=== PATIENT | male | born 1970 | race Caucasian/White ===

== ENCOUNTER 2017-01-17 06:33 | Day surgery (SDC) | payer OTHER ==
[~2017-01-17] VITALS: Ht 170.2 cm; Wt 74.8 kg
[~2017-01-17 06:33] MED LIST: BACLOFEN10 MG GT; BACLOFEN10 MG PO; BAY GT; CAT0.1 GT; CLINDAMYCI300 MG/50 GT; CLINDAMYCIN HC300 MG PO; CLONIDINE HCL0.1 MG GT; COL100UDC GT; DIOCTO LIQ50 MG/5 ML PO; DOCU GT; DOXYCYCLINE MO100 MG GT; FAMOTIDINE20 MG PO; FERG PO; FIBERSOURCE HN250 ML GT; FLORINEF ACETA0.1 MG GT; FLORINEF ACETA0.1 MG PO; FLUDROCORTISON0.1 MG GT; FLUDROCORTISON0.1 MG PO; GOOD SENSE ASPI81 M3 GT; GUAIFENESI100 MG/52 GT; IPRATROPIUM BROM3 M2 HHN; KCL20L GT; KEPPRA100 MG/M1 PO; KEPPRA1000 M1 GT; KEPPRA500 MG; KEPPRA500 MG GT; LAC GT; LAC PO; LAC30L PO; LEVAQUIN500 MG GT; LEVAQUIN750 MG GT; LIO10 GT; LIPI10 GT; LORAZEPAM0.5 MG GT; NORCO1 TA2 GT; POTASSIUM CHLO10 MEQ; PROVENTIL0.09 MG/A1 INH; RANITIDINE HCL150 M1 PO; RANITIDINE150 M1 GT; SEN GT; SENNA LAXATIVE8.6 MG PO; SENNA8.6 M2 GT; SENNA8.6 M2 PO; STOOL SOFTENER100 MG GT; TRAZODONE HYDR100 MG PO; TRAZODONE100 MG PO; VALIUM2 MG GT; VALIUM5 MG PO; Z GT; ZES10 GT; ZES20 GT; ZOS3PM IV
[2017-01-17 07:12] VITALS: BP 125/78
[2017-01-17 13:19] VITALS: BP 141/91
== END 2017-01-17 12:05 | disposition home or self-care (01) ==
LOC: GI 06:33 → OR 07:30 → GI 12:05
PROVIDERS: Internal Medicine Gastroenterology
PROC: 0W3F0ZZ Control Bleeding in Abdominal Wall, Open Approach (ICD-10-PCS; 2017-01-17)
PROC: 0D20XUZ Change Feeding Device in Upper Intestinal Tract, External Approach (ICD-10-PCS; principal; 2017-01-17 07:30)
PROC: 0HB7XZZ Excision of Abdomen Skin, External Approach (ICD-10-PCS; 2017-01-17 07:30)
DX: K94.23 Gastrostomy malfunction (principal); L92.8 Other granulomatous disorders of the skin and subcutaneous tissue; K94.21 Gastrostomy hemorrhage; Y83.3 Surgical operation with formation of external stoma as the cause of abnormal reaction of the patient, or of later complication, without mention of misadventure at the time of the procedure; Y73.2 Prosthetic and other implants, materials and accessory gastroenterology and urology devices associated with adverse incidents; Y92.009 Unspecified place in unspecified non-institutional (private) residence as the place of occurrence of the external cause
CPT/HCPCS: 43760; J1200; J1610; J2001; J2250; J2310; J3010; J3490; Q0092; Q9963

== ENCOUNTER 2017-09-17 04:46 | Emergency (ER) | payer OTHER ==
[~2017-09-17] VITALS: Ht 170.2 cm; Wt 68.0 kg
[2017-09-17 04:53] VITALS: Ht 170.2 cm; Wt 68.0 kg
[2017-09-17 06:56] VITALS: BP 103/64
== END 2017-09-17 07:05 | disposition home or self-care (01) ==
LOC: ED 04:46
DX: Z76.0 Encounter for issue of repeat prescription (principal); F51.09 Other insomnia not due to a substance or known physiological condition; I10 Essential (primary) hypertension

== ENCOUNTER 2017-10-07 16:14 | Inpatient (IN) | payer OTHER ==
[~2017-10-07] VITALS: Ht 170.2 cm; Wt 87.3 kg
[2017-10-07 17:32] LABS: BASOPHIL % 0.1 % (0-2); RED CELL DISTRIBUTION WIDTH 14.1 % (11.5-14.5)
[2017-10-07 17:33] LABS: PLATELET COUNT 100 x10^3mcL (130-400)
[2017-10-07 17:51] LABS: CARBON DIOXIDE 29.4 mmol/L (21-32); CREATININE SERUM 2.3 mg/dL (0.7-1.3); POTASSIUM SERUM 4.5 mmol/L (3.5-5.1)
[2017-10-07 18:02] LABS: BILIRUBIN TOTAL 0.66 mg/dL (0.20-1.00); TOTAL PROTEIN, SERUM 7.4 g/dL (6.4-8.2)
[2017-10-07 18:03] LABS: ALBUMIN 3.1 g/dL (3.4-5.0)
[2017-10-07] MEDS ORDERED: LACTULOSE10 GM/152 PO (19:12)
[2017-10-07] MEDS ORDERED: FERROUS SULFAT325 M2 GT (19:14)
[2017-10-07] MEDS ORDERED: KEPPRA100 MG/M1 GT (19:17)
[2017-10-07] MEDS ORDERED: AMBIEN5 MG PO (19:31)
[2017-10-07] MEDS ORDERED: NATURE'S BLEND1 TA4 (19:31)
[2017-10-07] MEDS ORDERED: CARVEDILOL3.125 M1 (19:39)
[2017-10-07] MEDS ORDERED: CARVEDILOL6.25 M1 PO (19:40)
[2017-10-07] MEDS ORDERED: IBUPROFEN400 MG PO (19:40)
[2017-10-07] MEDS ORDERED: ESCITALOPRAM OX10 MG PO (19:41)
[2017-10-07] MEDS ORDERED: LISINOPRIL10 MG PO (19:41)
[2017-10-07] MEDS ORDERED: CYCLOBENZAPRINE5 MG PO (19:41)
[2017-10-07] MEDS ORDERED: SENNA LAX8.6 MG (19:42)
[2017-10-07] MEDS ORDERED: LAXATIVE5 M1 (19:42)
[2017-10-07] MEDS ORDERED: FAMOTIDINE40 MG PO (19:42)
[2017-10-07 19:45] LABS: microscopic required? YES; urine erythrocyte NEGATIVE (NEGATIVE)
[2017-10-07 20:38] VITALS: BP 81/56
[2017-10-07 21:20] LABS: AMPHETAMINE QUAL UR NONE DETECTED (NEG <=1000)
[2017-10-07 21:37] LABS: T3 TOTAL 0.57 ng/mL
[2017-10-07 21:38] LABS: MAGNESIUM 2.6 mg/dL (1.8-2.4)
[2017-10-07 21:39] LABS: CHOLESTEROL/HDL RATIO 1.8
[2017-10-07 21:44] LABS: FREE T4 0.8 ng/dL (0.76-1.46)
[2017-10-07 21:45] LABS: FREE THYROXINE INDEX 1.5 ug/dL (1.4-4.5); T4(THYROXINE) 4.3 ug/dL (4.7-13.3)
[2017-10-07 23:34] VITALS: BP 81/56
[2017-10-08] VITALS (19 sets, daily range): BP systolic 79–137; BP diastolic 37–81
[2017-10-08 04:48] LABS: RED CELL DISTRIBUTION WIDTH 13.7 % (11.5-14.5)
[2017-10-08 04:59] LABS: PLATELET COUNT 84 x10^3mcL (130-400)
[2017-10-08 05:01] LABS: CALCIUM 7.3 mg/dL (8.5-10.1); CARBON DIOXIDE 29.2 mmol/L (21-32); CREATININE SERUM 1.5 mg/dL (0.7-1.3); MAGNESIUM 2.1 mg/dL (1.8-2.4); PHOSPHOROUS 2.4 mg/dL (2.5-4.9); POTASSIUM SERUM 5.2 mmol/L (3.5-5.1)
[2017-10-08 05:49] LABS: BAND NEUTROPHIL 47 % (0-10); BASOPHIL 0 % (0-2); MONOCYTE 4 % (0-7); PLATELET MORPHOLOGY LARGE PLATELET SEEN; SEGMENTED NEUTROPHILS 33 % (37-75); rbc morphology (normal/abnorm) ABNORMAL (NORMAL); tear drop cell (dacryocyte) 1+
[2017-10-09] VITALS (18 sets, daily range): BP systolic 96–147; BP diastolic 49–87
[2017-10-09 05:51] LABS: CALCIUM 7.2 mg/dL (8.5-10.1); CHLORIDE SERUM 111 mmol/L (98-107); CREATININE SERUM 1.1 mg/dL (0.7-1.3); GFR1 > 60 mL/min; GLUCOSE SERUM 87 mg/dL (74-106); MAGNESIUM 2.1 mg/dL (1.8-2.4); PHOSPHOROUS 1.7 mg/dL (2.5-4.9); SODIUM SERUM 150 mmol/L (136-145)
[2017-10-09 05:52] LABS: POTASSIUM SERUM 2.8 mmol/L (3.5-5.1)
[2017-10-09 05:55] LABS: BASOPHIL % 0.3 % (0-2)
[2017-10-09 05:56] LABS: PLATELET COUNT 74 x10^3mcL (130-400)
[2017-10-10] VITALS (12 sets, daily range): BP systolic 121–164; BP diastolic 66–98
[2017-10-10 05:29] LABS: CALCIUM 7.3 mg/dL (8.5-10.1); CHLORIDE SERUM 107 mmol/L (98-107); GFR1 > 60 mL/min; GLUCOSE SERUM 139 mg/dL (74-106); MAGNESIUM 1.7 mg/dL (1.8-2.4)
[2017-10-10 05:40] LABS: BASOPHIL % 0.1 % (0-2); PLATELET COUNT 69 x10^3mcL (130-400); RED CELL DISTRIBUTION WIDTH 13.4 % (11.5-14.5)
[2017-10-10 05:55] LABS: SODIUM SERUM 145 mmol/L (136-145)
[2017-10-10 13:41] LABS: CALCIUM 7.4 mg/dL (8.5-10.1); CARBON DIOXIDE 32.9 mmol/L (21-32); CHLORIDE SERUM 108 mmol/L (98-107); CREATININE SERUM 0.9 mg/dL (0.7-1.3); GFR1 > 60 mL/min; GLUCOSE SERUM 116 mg/dL (74-106); SODIUM SERUM 145 mmol/L (136-145)
[2017-10-10 13:44] LABS: POTASSIUM SERUM 2.9 mmol/L (3.5-5.1)
[2017-10-11 03:00] VITALS: BP 127/78
[2017-10-11 05:33] LABS: BASOPHIL % 0.1 % (0-2); RED CELL DISTRIBUTION WIDTH 14.3 % (11.5-14.5)
[2017-10-11 05:38] LABS: PLATELET COUNT 81 x10^3mcL (130-400)
[2017-10-11 05:52] LABS: CALCIUM 7.6 mg/dL (8.5-10.1); CARBON DIOXIDE 32.2 mmol/L (21-32); CHLORIDE SERUM 109 mmol/L (98-107); CREATININE SERUM 0.7 mg/dL (0.7-1.3); GFR1 > 60 mL/min; GLUCOSE SERUM 120 mg/dL (74-106); MAGNESIUM 1.9 mg/dL (1.8-2.4); PHOSPHOROUS 2.7 mg/dL (2.5-4.9); POTASSIUM SERUM 3.4 mmol/L (3.5-5.1); SODIUM SERUM 146 mmol/L (136-145)
[2017-10-11 07:15] VITALS: BP 148/100
[2017-10-11 11:13] VITALS: BP 96/58
[2017-10-11 15:11] VITALS: BP 120/76
[2017-10-11 16:41] VITALS: BP 111/75
[2017-10-11 20:59] VITALS: BP 138/85
[2017-10-12 06:06] VITALS: BP 142/98
[2017-10-12 09:36] VITALS: BP 137/87
[2017-10-12 13:16] VITALS: BP 90/52
[2017-10-12 16:49] VITALS: BP 126/76
[2017-10-12 17:50] LABS: BASOPHIL % 0.1 % (0-2); PLATELET COUNT 95 x10^3mcL (130-400); RED CELL DISTRIBUTION WIDTH 14.1 % (11.5-14.5)
[2017-10-12 18:09] LABS: CALCIUM 7.7 mg/dL (8.5-10.1); CHLORIDE SERUM 108 mmol/L (98-107); CREATININE SERUM 0.7 mg/dL (0.7-1.3); GFR1 > 60 mL/min; GLUCOSE SERUM 116 mg/dL (74-106); MAGNESIUM 1.7 mg/dL (1.8-2.4); PHOSPHOROUS 2.6 mg/dL (2.5-4.9); POTASSIUM SERUM 4.4 mmol/L (3.5-5.1); SODIUM SERUM 147 mmol/L (136-145)
[2017-10-12 22:03] VITALS: BP 130/80
[2017-10-13 06:13] VITALS: BP 152/96
[2017-10-13 07:57] LABS: CALCIUM 8.1 mg/dL (8.5-10.1); CARBON DIOXIDE 38.6 mmol/L (21-32); CHLORIDE SERUM 106 mmol/L (98-107); CREATININE SERUM 0.7 mg/dL (0.7-1.3); GFR1 > 60 mL/min; GLUCOSE SERUM 134 mg/dL (74-106); MAGNESIUM 1.7 mg/dL (1.8-2.4); PHOSPHOROUS 2.6 mg/dL (2.5-4.9); POTASSIUM SERUM 4.5 mmol/L (3.5-5.1); SODIUM SERUM 148 mmol/L (136-145)
[2017-10-13 08:37] VITALS: BP 144/87
[2017-10-13 08:50] LABS: BASOPHIL % 0.4 % (0-2); PLATELET COUNT 114 x10^3mcL (130-400); RED CELL DISTRIBUTION WIDTH 13.8 % (11.5-14.5)
[2017-10-13 09:14] VITALS: BP 144/87
[2017-10-13 13:36] VITALS: BP 91/51
[2017-10-13 16:39] VITALS: BP 109/68
[2017-10-13 21:06] VITALS: BP 141/93
[2017-10-14] VITALS (7 sets, daily range): BP systolic 113–152; BP diastolic 74–96
[2017-10-14 07:14] LABS: CALCIUM 8.7 mg/dL (8.5-10.1); CHLORIDE SERUM 106 mmol/L (98-107); CREATININE SERUM 0.6 mg/dL (0.7-1.3); GFR1 > 60 mL/min; GLUCOSE SERUM 76 mg/dL (74-106); MAGNESIUM 1.9 mg/dL (1.8-2.4); POTASSIUM SERUM 4.3 mmol/L (3.5-5.1); SODIUM SERUM 150 mmol/L (136-145)
[2017-10-14 07:47] LABS: BASOPHIL % 0.1 % (0-2); PLATELET COUNT 146 x10^3mcL (130-400)
[2017-10-15 05:47] VITALS: BP 148/85
[2017-10-15 06:55] LABS: CALCIUM 8.3 mg/dL (8.5-10.1); CHLORIDE SERUM 104 mmol/L (98-107); CREATININE SERUM 0.7 mg/dL (0.7-1.3); GFR1 > 60 mL/min; GLUCOSE SERUM 73 mg/dL (74-106); MAGNESIUM 1.8 mg/dL (1.8-2.4); PHOSPHOROUS 3.1 mg/dL (2.5-4.9); POTASSIUM SERUM 3.7 mmol/L (3.5-5.1); SODIUM SERUM 148 mmol/L (136-145)
[2017-10-15 06:58] LABS: BASOPHIL % 0.5 % (0-2); PLATELET COUNT 171 x10^3mcL (130-400); RED CELL DISTRIBUTION WIDTH 13.5 % (11.5-14.5)
[2017-10-15 07:23] LABS: CARBON DIOXIDE 40.8 mmol/L (21-32)
[2017-10-15 09:58] VITALS: BP 153/95
[2017-10-15 14:12] VITALS: BP 117/73
[2017-10-15 17:58] VITALS: BP 122/70
[2017-10-15 19:35] VITALS: BP 150/88
[2017-10-15 20:38] VITALS: BP 159/83
[2017-10-16 05:25] VITALS: BP 145/93
[2017-10-16 06:42] LABS: BASOPHIL % 0.6 % (0-2); PLATELET COUNT 205 x10^3mcL (130-400); RED CELL DISTRIBUTION WIDTH 13.8 % (11.5-14.5)
[2017-10-16 07:59] LABS: CALCIUM 8.3 mg/dL (8.5-10.1); CHLORIDE SERUM 100 mmol/L (98-107); CREATININE SERUM 0.7 mg/dL (0.7-1.3); GFR1 > 60 mL/min; GLUCOSE SERUM 73 mg/dL (74-106); MAGNESIUM 1.6 mg/dL (1.8-2.4); PHOSPHOROUS 3.3 mg/dL (2.5-4.9); POTASSIUM SERUM 3.2 mmol/L (3.5-5.1); SODIUM SERUM 147 mmol/L (136-145)
[2017-10-16 08:01] LABS: CARBON DIOXIDE 42.6 mmol/L (21-32)
[2017-10-16 09:20] VITALS: BP 151/89
[2017-10-16 12:00] VITALS: BP 98/61
[2017-10-16 12:45] VITALS: BP 110/65
[2017-10-16 16:39] VITALS: BP 99/57
[2017-10-16 19:40] VITALS: BP 116/77
[2017-10-17 05:34] VITALS: BP 128/87
[2017-10-17 06:37] LABS: BASOPHIL % 0.3 % (0-2); PLATELET COUNT 210 x10^3mcL (130-400); RED CELL DISTRIBUTION WIDTH 13.8 % (11.5-14.5)
[2017-10-17 06:52] LABS: CALCIUM 8.4 mg/dL (8.5-10.1); CHLORIDE SERUM 102 mmol/L (98-107); CREATININE SERUM 0.7 mg/dL (0.7-1.3); GFR1 > 60 mL/min; GLUCOSE SERUM 78 mg/dL (74-106); MAGNESIUM 2.3 mg/dL (1.8-2.4); PHOSPHOROUS 2.9 mg/dL (2.5-4.9); POTASSIUM SERUM 3.3 mmol/L (3.5-5.1); SODIUM SERUM 148 mmol/L (136-145)
[2017-10-17 07:08] LABS: CARBON DIOXIDE 42.2 mmol/L (21-32)
[2017-10-17 09:08] VITALS: BP 139/84
[2017-10-17 12:52] VITALS: BP 111/70
[2017-10-17 16:46] VITALS: BP 94/55
[2017-10-17 19:40] VITALS: BP 96/54
[2017-10-18 05:28] VITALS: BP 144/91
[2017-10-18 06:46] LABS: CALCIUM 8.6 mg/dL (8.5-10.1); CARBON DIOXIDE 37.7 mmol/L (21-32); CHLORIDE SERUM 104 mmol/L (98-107); CREATININE SERUM 0.7 mg/dL (0.7-1.3); GFR1 > 60 mL/min; GLUCOSE SERUM 84 mg/dL (74-106); PHOSPHOROUS 2.2 mg/dL (2.5-4.9); POTASSIUM SERUM 3.3 mmol/L (3.5-5.1); SODIUM SERUM 147 mmol/L (136-145)
[2017-10-18 06:53] LABS: BASOPHIL % 0.3 % (0-2); PLATELET COUNT 246 x10^3mcL (130-400); RED CELL DISTRIBUTION WIDTH 13.8 % (11.5-14.5)
[2017-10-18 10:35] VITALS: BP 109/62
[2017-10-18 15:55] VITALS: BP 106/73
[2017-10-18 17:35] VITALS: BP 130/83
[2017-10-18 20:54] VITALS: BP 108/68
[2017-10-19 05:36] VITALS: BP 149/93
[2017-10-19 08:00] VITALS: BP 145/95
[2017-10-19 09:14] LABS: BASOPHIL % 0.4 % (0-2); PLATELET COUNT 263 x10^3mcL (130-400); RED CELL DISTRIBUTION WIDTH 13.5 % (11.5-14.5)
[2017-10-19 09:33] LABS: CALCIUM 8.5 mg/dL (8.5-10.1); CARBON DIOXIDE 36.8 mmol/L (21-32); CHLORIDE SERUM 106 mmol/L (98-107); CREATININE SERUM 0.8 mg/dL (0.7-1.3); GFR1 > 60 mL/min; GLUCOSE SERUM 88 mg/dL (74-106); SODIUM SERUM 145 mmol/L (136-145)
[2017-10-19 10:12] LABS: POTASSIUM SERUM 2.9 mmol/L (3.5-5.1)
[2017-10-19 11:05] VITALS: Ht 170.2 cm; Wt 87.3 kg
[2017-10-19 17:19] VITALS: BP 112/73
[2017-10-19 20:42] VITALS: BP 142/91
[2017-10-20 05:40] VITALS: BP 133/86
[2017-10-20 07:12] LABS: BASOPHIL % 0.5 % (0-2); PLATELET COUNT 282 x10^3mcL (130-400); RED CELL DISTRIBUTION WIDTH 14.2 % (11.5-14.5)
[2017-10-20 07:19] LABS: CALCIUM 8.4 mg/dL (8.5-10.1); CARBON DIOXIDE 35.7 mmol/L (21-32); CHLORIDE SERUM 105 mmol/L (98-107); CREATININE SERUM 0.7 mg/dL (0.7-1.3); GFR1 > 60 mL/min; GLUCOSE SERUM 72 mg/dL (74-106); POTASSIUM SERUM 3.3 mmol/L (3.5-5.1); SODIUM SERUM 147 mmol/L (136-145)
[2017-10-20 10:10] VITALS: BP 113/74
[2017-10-20 17:13] VITALS: BP 139/87
[2017-10-20 17:34] VITALS: BP 139/87
[2017-10-20 21:11] VITALS: BP 124/84
[2017-10-21 05:27] VITALS: BP 107/73
[2017-10-21 07:14] LABS: BASOPHIL % 0.7 % (0-2); CALCIUM 8.6 mg/dL (8.5-10.1); CARBON DIOXIDE 35.3 mmol/L (21-32); CHLORIDE SERUM 105 mmol/L (98-107); CREATININE SERUM 0.8 mg/dL (0.7-1.3); GFR1 > 60 mL/min; GLUCOSE SERUM 82 mg/dL (74-106); PLATELET COUNT 275 x10^3mcL (130-400); POTASSIUM SERUM 3.5 mmol/L (3.5-5.1); RED CELL DISTRIBUTION WIDTH 14.1 % (11.5-14.5); SODIUM SERUM 145 mmol/L (136-145)
[2017-10-21 09:15] VITALS: BP 138/93
[2017-10-21 17:08] VITALS: BP 96/60
[2017-10-21 21:45] VITALS: BP 129/94
== END 2017-10-21 22:15 | DRG 720 ==
LOC: ED 16:14 → MU 18:56 → DU 18:56 → IC 18:56 → DU 10-11 16:35 → MU 10-16 07:11
PROVIDERS: Emergency Medicine; Family Medicine
PROC: 5A1945Z Respiratory Ventilation, 24-96 Consecutive Hours (ICD-10-PCS; principal; 2017-10-08)
PROC: 0BH17EZ Insertion of Endotracheal Airway into Trachea, Via Natural or Artificial Opening (ICD-10-PCS; 2017-10-08)
PROC: 05HM33Z Insertion of Infusion Device into Right Internal Jugular Vein, Percutaneous Approach (ICD-10-PCS; 2017-10-08)
PROC: B5131ZA Fluoroscopy of Right Jugular Veins using Low Osmolar Contrast, Guidance (ICD-10-PCS; 2017-10-08)
DX: A41.9 Sepsis, unspecified organism (principal); N17.0 Acute kidney failure with tubular necrosis; J96.21 Acute and chronic respiratory failure with hypoxia; J69.0 Pneumonitis due to inhalation of food and vomit; R65.21 Severe sepsis with septic shock; K85.90 Acute pancreatitis without necrosis or infection, unspecified; E44.0 Moderate protein-calorie malnutrition; J96.22 Acute and chronic respiratory failure with hypercapnia; K94.22 Gastrostomy infection; L03.311 Cellulitis of abdominal wall; B96.1 Klebsiella pneumoniae [K. pneumoniae] as the cause of diseases classified elsewhere; B96.20 Unspecified Escherichia coli [E. coli] as the cause of diseases classified elsewhere; E83.42 Hypomagnesemia; M94.0 Chondrocostal junction syndrome [Tietze]; M47.892 Other spondylosis, cervical region; M62.838 Other muscle spasm; R80.9 Proteinuria, unspecified; R55 Syncope and collapse; G40.909 Epilepsy, unspecified, not intractable, without status epilepticus; Z68.25 Body mass index [BMI] 25.0-25.9, adult; Z99.81 Dependence on supplemental oxygen; Z86.011 Personal history of benign neoplasm of the brain; Y83.3 Surgical operation with formation of external stoma as the cause of abnormal reaction of the patient, or of later complication, without mention of misadventure at the time of the procedure; Y73.2 Prosthetic and other implants, materials and accessory gastroenterology and urology devices associated with adverse incidents; Y92.009 Unspecified place in unspecified non-institutional (private) residence as the place of occurrence of the external cause; Z86.73 Personal history of transient ischemic attack (TIA), and cerebral infarction without residual deficits; G90.8 Other disorders of autonomic nervous system; D64.9 Anemia, unspecified; F32.9 Major depressive disorder, single episode, unspecified
CPT/HCPCS: 36556; 36600; 82962; 83880; 84439; 87804; 97110-GP; 97116-GP; 97530-GP; C9113; J0696; J1170; J1642; J1644; J1885; J1940; J1953; J1956; J2060; J2270; J2543; J3475; J3480; J3490; J7030; J7040; J7042; J7050; J7613; J7620; J7644; Q0092; Q9967